=== PATIENT | female | born 1970 ===

== ENCOUNTER 2017-03-05 14:13 | Emergency (ER) | payer OTHER ==
[2017-03-05 14:25] VITALS: BP 164/74; PULSE 72; RESP 18; TEMP 97.4; O2SAT 100
[2017-03-05] MEDS ORDERED: Sodium Chloride 0.9% 1,000 ML IV STA (14:42)
--- NOTE | 2017-03-05 14:53 | ED PDOC ---
HPI: Abdomen Time Seen by Provider: 03/05/17 14:28 Chief Complaint (Nursing): Abdominal Pain Chief Complaint (Provider): Abdominal Pain History Per: Patient History/Exam Limitations: no limitations Onset/Duration Of Symptoms: Days (x 2 days) Current Symptoms Are (Timing): Still Present Additional Complaint(s): 46 y/o female with past medical history of hypertension and Deep Vein Thrombosis presents to the ED complaining of gastric pain associated with nausea and diarrhea x 2 days. Denies fever, bloody stool or any further medical complaints. PMD: Ed Zhou MD Past Medical History Vital Signs: Last Vital Signs Temp 97.4 F L 03/05/17 14:16 Pulse 72 03/05/17 14:16 Resp 18 03/05/17 14:16 BP 164/74 H 03/05/17 14:16 Pulse Ox 100 03/05/17 14:54 - Family History Family History: States: Unknown Family Hx - Home Medications Home Medications: Ambulatory Orders Medication Instructions Recorded Famotidine [Pepcid] 20 mg PO Q12 #20 tab 03/05/17 - Allergies Allergies/Adverse Reactions: Allergies Allergy/AdvReac Type Severity Reaction Status Date / Time No Known Allergies Allergy Verified 03/05/17 14:16 Review of Systems ROS Statement: Except As Marked, All Systems Reviewed And Found Negative (As per HPI, otherwise negative) Constitutional: Negative for: Fever Gastrointestinal: Positive for: Nausea, Abdominal Pain, Diarrhea Genitourinary Female: Negative for: Other (bloody stool) Physical Exam - Reviewed Nursing Documentation Reviewed: Yes Vital Signs Reviewed: Yes - Physical Exam Appears: Positive for: Non-toxic, No Acute Distress Head Exam: Positive for: ATRAUMATIC, NORMOCEPHALIC Skin: Positive for: Normal Color, Warm, Dry Eye Exam: Positive for: EOMI, Normal appearance, PERRL Cardiovascular/Chest: Positive for: Regular Rate, Rhythm. Negative for: Murmur Respiratory: Positive for: Normal Breath Sounds. Negative for: Accessory Muscle Use, Respiratory Distress Gastrointestinal/Abdominal: Positive for: Tenderness (episgastric tenderness) Back: Positive for: Normal Inspection. Negative for: L CVA Tenderness, R CVA Tenderness, Vertebral Tenderness Extremity: Positive for: Normal ROM. Negative for: Tenderness, Deformity, Swelling Neurologic/Psych: Positive for: Alert, Oriented (x3) - Laboratory Results Result Diagrams: 03/05/17 14:57 03/05/17 14:57 - ECG O2 Sat by Pulse Oximetry: 100 (RA) Pulse Ox Interpretation: Normal Medical Decision Making Medical Decision Making: Time: 14:42 Plan: CMP CBC w/ diff Bentyl 10mg PO Pepcid 20g IVP Sodium chloride 1L IV Zofran 4mg IVP Scribe Attestation: Documented by Nicho Farley acting as a scribe for Carlos Arellano MD. Scribe Attestation: All medical record entries made by the Scribe were at my direction and personally dictated by me. I have reviewed the chart and agree that the record accurately reflects my personal performance of the history, physical exam, medical decision making, and the department course for this patient. I have also personally directed, reviewed, and agree with the discharge instructions and disposition. Disposition - Clinical Impression Clinical Impression: Gastritis - Patient ED Disposition Is Patient to be Admitted: No Counseled Patient/Family Regarding: Studies Performed, Diagnosis, Need For Followup, Rx Given - Disposition Referrals: ED Physician, [Primary Care Provider] - [facility] [Outside] Disposition: Routine/Home Disposition Time: 16:30 Condition: FAIR Prescriptions: Famotidine [Pepcid] 20 mg PO Q12 #20 tab Instructions: Gastritis (ED) Forms: [employer] (Syriac)
[2017-03-05 15:05] LABS: BASO # 0.1 K/uL (0.0-0.2); BASO % 0.7 % (0.0-2.0); EOS # 0.1 K/uL (0.0-0.7); EOS % 1.4 % (0.0-4.0); HEMATOCRIT 36.8 % (34.0-47.0); LYMPH # 2.1 K/uL (1.0-4.3); LYMPH % 24.4 % (20.0-40.0); MEAN CELL VOLUME 85.9 fl (81.0-99.0); MEAN CORPUSCULAR HEMOGLOBIN 28.1 pg (27.0-31.0); MEAN CORPUSCULAR HGB CONC 32.8 g/dL (33.0-37.0); MEAN PLATELET VOLUME 9.5 fl (7.2-11.7); MONO # 0.7 K/uL (0.0-0.8); NEUT # 5.5 K/uL (1.8-7.0); NEUT % 65.5 % (50.0-75.0); NRBC % 0.1 % (0.0-0.0); RED CELL DISTRIBUTION WIDTH 14.6 % (11.5-14.5); WHITE BLOOD COUNT 8.4 K/uL (4.8-10.8)
[2017-03-05 15:10] LABS: ALB/GLOB RATIO 1.2 (1.0-2.1); ALKALINE PHOSPHATASE 54 U/L (38-126); ALT/SGPT 35 U/L (9-52); AST/SGOT 22 U/L (14-36); BILIRUBIN,TOTAL 0.3 mg/dl (0.2-1.3); BLOOD UREA NITROGEN 13 mg/dl (7-17); CALCIUM 8.8 mg/dL (8.4-10.2); CARBON DIOXIDE 29 mmol/L (22-30); CHLORIDE 107 mmol/L (98-107); GFR AFRICAN-AMERICAN > 60; GLUCOSE,RANDOM 86 mg/dL (65-105); SODIUM 146 mmol/l (132-148); TOTAL PROTEIN 7.6 G/DL (6.3-8.2)
== END 2017-03-05 16:42 | disposition home or self-care (01) ==
LOC: H.ER 14:13
DX: K29.70 Gastritis, unspecified, without bleeding (principal); I10 Essential (primary) hypertension
CPT/HCPCS: 80053; 85025; 96361; 96374; 96375; 99282; J2405; J7040

== ENCOUNTER 2017-10-14 17:29 | Emergency (ER) | payer OTHER ==
[2017-10-14 17:50] VITALS: O2SAT 99
--- NOTE | 2017-10-14 18:42 | ED PDOC ---
Lower Extremity Pain/Injury Time Seen by Provider: 10/14/17 18:22 Chief Complaint (Nursing): Lower Extremity Problem/Injury Additional Complaint(s): 46-year-old female presents with pain and swelling to left leg times one week. Patient has history of blood clots to same leg. She currently takes eloquent daily. Patient also has history of meniscal tear to left knee. She denies recent trauma or injury. No fever or chills. No chest pain, shortness of breath or dyspnea on exertion. Past Medical History Reviewed: Historical Data, Nursing Documentation, Vital Signs Vital Signs: Last Vital Signs Temp 98.3 F 10/14/17 17:48 Pulse 86 10/14/17 17:48 Resp 20 10/14/17 17:48 BP 177/105 H 10/14/17 17:48 Pulse Ox 99 10/14/17 17:48 - Medical History PMH: Deep Vein Thrombosis, HTN - Surgical History Other surgeries: tubal ligation, left ovarian cyst removal - Family History Family History: States: No Known Family Hx - Living Arrangements Living Arrangements: With Family - Social History Current smoker - smoking cessation education provided: No Alcohol: None Drugs: Denies - Home Medications Home Medications: Ambulatory Orders Medication Instructions Recorded Famotidine [Pepcid] 20 mg PO Q12 #20 tab 03/05/17 Acetaminophen 2 tab PO Q6 PRN #24 tablet 10/15/17 - Allergies Allergies/Adverse Reactions: Allergies Allergy/AdvReac Type Severity Reaction Status Date / Time No Known Allergies Allergy Verified 03/05/17 14:16 Wells Criteria for PE - Wells Criteria for Pulmonary Embolism Clinical Signs and Symptoms of DVT: Yes P.E is #1 Diagnosis, or Equally Likely: No Heart Rate >100: No Immobilization at least 3 days;Surgery previous 4 weeks: No Previous, objectively diagnosed PE or DVT: No Hemoptysis: No Malignancy w/treatment within 6 months, or palliative: No Total Score: 3 Review of Systems ROS Statement: Except As Marked, All Systems Reviewed And Found Negative Constitutional: Negative for: Fever, Chills Cardiovascular: Negative for: Chest Pain Respiratory: Negative for: Cough Musculoskeletal: Positive for: Other (left leg pain and swelling) Physical Exam - Reviewed Nursing Documentation Reviewed: Yes Vital Signs Reviewed: Yes - Physical Exam Appears: Positive for: Well, Non-toxic, No Acute Distress Skin: Positive for: Normal Color. Negative for: Rash Eye Exam: Positive for: Normal appearance Cardiovascular/Chest: Positive for: Regular Rate, Rhythm Respiratory: Positive for: Normal Breath Sounds. Negative for: Wheezing, Respiratory Distress Extremity: Positive for: Calf Tenderness (left), Other (Diffuse swelling noted to left lower extremity, full range of motion left knee with pain, normal distal sensation left lower extremity). Negative for: Deformity Neurologic/Psych: Positive for: Alert, Oriented - Laboratory Results Result Diagrams: 10/14/17 19:40 10/14/17 19:40 - ECG O2 Sat by Pulse Oximetry: 99 Pulse Ox Interpretation: Normal Medical Decision Making Medical Decision Makin46 year old with left leg pain Plan: Left knee x-ray Doppler left leg CBC CMP PT/PTT IVF Disposition - Clinical Impression Clinical Impression: Left leg pain - Patient ED Disposition Is Patient to be Admitted: Transfer of Care - Disposition Disposition: Transfer of Care Disposition Time: 19:00 Condition: FAIR Prescriptions: Acetaminophen 2 tab PO Q6 PRN #24 tablet PRN Reason: Pain, Moderate (4-7) Instructions: Knee Pain (DC) Forms: [facility] ED School/Work Excuse Print Language: KAZAKH Patient Signed Over To: Adrianne Farley Handoff Comments: Signed out pending diagnostic testing results and final disposition
[2017-10-14] MEDS ORDERED: Sodium Chloride 0.9% 1,000 ML IV STA (18:53)
[2017-10-14 19:53] LABS: BASO # 0.1 K/uL (0.0-0.2); BASO % 0.7 % (0.0-2.0); EOS # 0.1 K/uL (0.0-0.7); EOS % 1.2 % (0.0-4.0); HEMOGLOBIN 11.3 g/dL (12.0-16.0); LYMPH # 2.4 K/uL (1.0-4.3); LYMPH % 21.6 % (20.0-40.0); MEAN CELL VOLUME 84.7 fl (81.0-99.0); MEAN CORPUSCULAR HEMOGLOBIN 28.1 pg (27.0-31.0); MEAN CORPUSCULAR HGB CONC 33.1 g/dL (33.0-37.0); MEAN PLATELET VOLUME 9.1 fl (7.2-11.7); MONO # 0.9 K/uL (0.0-0.8); MONO % 7.9 % (0.0-10.0); NEUT # 7.8 K/uL (1.8-7.0); NEUT % 68.6 % (50.0-75.0); NRBC % 2.5 % (0.0-0.0); RBC 4.04 Mil/uL (3.80-5.20); RED CELL DISTRIBUTION WIDTH 15.6 % (11.5-14.5); WHITE BLOOD COUNT 11.3 K/uL (4.8-10.8)
[2017-10-14 20:00] LABS: ALB/GLOB RATIO 1.1 (1.0-2.1); ALBUMIN 4.1 g/dL (3.5-5.0); ALT/SGPT 22 U/L (9-52); AST/SGOT 21 U/L (14-36); BLOOD UREA NITROGEN 12 mg/dl (7-17); CALCIUM 8.8 mg/dL (8.4-10.2); GFR AFRICAN-AMERICAN > 60; GFR NON-AFRICAN AMERICAN > 60
[2017-10-14 20:19] LABS: PARTIAL THROMBOPLASTIN TIME 35.1 Seconds (25.6-37.1); PROTHROMBIN TIME 11.4 Seconds (9.8-13.1)
[2017-10-14 23:28] VITALS: RESP 18; TEMP 98
--- NOTE | 2017-10-15 00:24 | ED PDOC ---
- Laboratory Results Result Diagrams: 10/14/17 19:40 10/14/17 19:40 - ECG O2 Sat by Pulse Oximetry: 99 - Progress ED Course And Treament: duplex left leg: no dvt xry of knee: no obvious fx/abnormality Disposition - Clinical Impression Clinical Impression: Left leg pain - POA Present On Arrival: None - Disposition Disposition: Routine/Home Disposition Time: 00:53 Condition: FAIR Prescriptions: Acetaminophen 2 tab PO Q6 PRN #24 tablet PRN Reason: Pain, Moderate (4-7) Instructions: Knee Pain (DC) Print Language: FILIPINO
[2017-10-15 02:12] VITALS: BP 140/78; PULSE 78
--- NOTE | 2017-10-15 10:09 | RAD ---
PROCEDURE: Left Knee Radiographs. HISTORY: Pain. COMPARISON: None. FINDINGS: BONES: No acute fracture. JOINTS: Unremarkable. JOINT EFFUSION: None. OTHER FINDINGS: None. IMPRESSION: No demonstrated fracture or dislocation.
--- NOTE | 2017-10-15 10:10 | US ---
HISTORY: leg left pain and swelling . PRIORS: None. FINDINGS: 2-D, color and duplex Doppler analysis of the lower extremity venous circulation using routine protocol from the femoral veins through the popliteal veins. Venous compressibility: Normal. Flow and augmentation patterns: Normal. Visualized veins upper third of calf: Normal. Chahal cyst: None. IMPRESSION: No sonographic or Doppler evidence for DVT in left lower extremity. Concordant results (preliminary interpretation) provided by [facility]. Procedure Completed: 22:56. Preliminary ([facility]) Report: Dictated and Authenticated: 23:12. Final Interpretation: 10:09. October 15, 2017.
== END 2017-10-15 01:30 | disposition home or self-care (01) ==
LOC: H.ER 17:29
DX: M79.605 Pain in left leg (principal); I10 Essential (primary) hypertension; Z86.718 Personal history of other venous thrombosis and embolism
CPT/HCPCS: 73562; 80053; 85025; 85610; 85730; 93971; 99283; J7030

== ENCOUNTER 2018-07-29 19:19 | Emergency (ER) | payer OTHER ==
[2018-07-29 19:34] VITALS: BMI 40.0
[2018-07-29 19:36] VITALS: RESP 16; O2SAT 97
--- NOTE | 2018-07-29 20:37 | ED PDOC ---
Lower Extremity Pain/Injury Time Seen by Provider: 07/29/18 19:49 Chief Complaint (Nursing): Lower Extremity Problem/Injury Chief Complaint (Provider): Lower Extremity Problem/Injury History Per: Patient History/Exam Limitations: no limitations Onset/Duration Of Symptoms: Days (x2) Current Symptoms Are (Timing): Still Present Additional Complaint(s): 47 y/o female presents to the ED for evaluation of left leg pain, onset two days ago. Patient reports pain is mostly in the lateral part of the left lower leg that worsens with certain movements of the lower leg. Patient notes of experiencing similar pain to previous episodes when she was diagnosed with a DVT in 2013. Patient reports that at that same time, she also had a Pulmonary Embolism. Patient states she has been on eliquis since then of which she is complaint and taking regularly. Patient reports of being recently placed on antibiotics for a dental procedure on Monday and has since been having diarrhea. Patient notes of having 4 to 5 episodes of watery, non-bloody diarrhea associated with mild abdominal cramping, decreased PO intake and mild shortness of breath. Patient states abdominal cramping worsens with eating. Otherwise, patient denies nausea, vomiting and chest pain. PMD: Ed Zhou Past Medical History Reviewed: Historical Data, Nursing Documentation, Vital Signs Vital Signs: Last Vital Signs Temp 98.8 F 07/29/18 19:34 Pulse 85 07/29/18 19:34 Resp 16 07/29/18 19:34 BP 181/112 H 07/29/18 19:34 Pulse Ox 97 07/29/18 19:34 - Medical History PMH: Deep Vein Thrombosis, HTN - Surgical History Other surgeries: Brain tumor removal, correction of artery in the chest, tubal ligation and left ovary resection due to large cyst. - Family History Family History: States: Unknown Family Hx - Social History Current smoker - smoking cessation education provided: No Alcohol: None Drugs: Denies - Home Medications Home Medications: Ambulatory Orders Medication Instructions Recorded Famotidine [Pepcid] 20 mg PO Q12 #20 tab 03/05/17 Acetaminophen 2 tab PO Q6 PRN #24 tablet 10/15/17 Acetaminophen [Tylenol Extra 1,000 mg PO Q6 PRN #100 tablet 07/29/18 Strength] Atropine/Diphenoxylate [Lonox 2 tab PO QID PRN #30 tab 07/29/18 0.025 MG-2.5 MG] Naproxen [Naprosyn] 1 tab PO BID PRN #30 tab 07/29/18 Saccharomyces Boulardi [Florastor] 500 mg PO BID #28 cap 07/29/18 - Allergies Allergies/Adverse Reactions: Allergies Allergy/AdvReac Type Severity Reaction Status Date / Time No Known Allergies Allergy Verified 07/29/18 19:33 Review of Systems ROS Statement: Except As Marked, All Systems Reviewed And Found Negative (as per HPI) Cardiovascular: Negative for: Chest Pain Respiratory: Positive for: Shortness of Breath Gastrointestinal: Positive for: Abdominal Pain, Diarrhea, Other (decreased PO intake). Negative for: Nausea, Vomiting Musculoskeletal: Positive for: Leg Pain Physical Exam - Reviewed Nursing Documentation Reviewed: Yes Vital Signs Reviewed: Yes - Physical Exam Appears: Positive for: Well, No Acute Distress Head Exam: Positive for: ATRAUMATIC, NORMOCEPHALIC Skin: Positive for: Warm, Dry Eye Exam: Positive for: EOMI, PERRL Neck: Positive for: Painless ROM, Supple Cardiovascular/Chest: Positive for: Regular Rate, Rhythm. Negative for: Murmur Respiratory: Positive for: Normal Breath Sounds. Negative for: Respiratory Distress Gastrointestinal/Abdominal: Positive for: Bowel Sounds (hyperactive bowel sounds), Soft. Negative for: Tenderness, Mass, Guarding, Rebound Back: Positive for: Normal Inspection. Negative for: Decreased ROM Extremity: Positive for: Calf Tenderness (left). Negative for: Pedal Edema, Deformity, Swelling Lymphatic: Negative for: Adenopathy Neurological/Psych: Positive for: Awake, Alert. Negative for: Motor/Sensory Deficits - Laboratory Results Result Diagrams: 07/29/18 20:47 07/29/18 20:47 - ECG O2 Sat by Pulse Oximetry: 97 (RA) Pulse Ox Interpretation: Normal Medical Decision Making Medical Decision Making: Time: 2010 Impression: Leg pain and diarrhea Rule out DVT v sciatica v muscle cramp Diarrhea likely antibiotic associated. Differentials include but not limited to C Diff colitis and dehydration Plan: -- Type and Screen -- EKG -- B-Type Natriuretic Peptide -- CMP -- Magnesium -- Phosphorus -- ED Urine -- ED Urine Dipstick -- CBC with Differentials -- PTT -- Prothrombin Time -- Stool Culture -- IV Insertion -- C Diff Toxin A B -- US Duplex Lower Extrem Vein Left Name: RACHEL RUBY Exam Date: Jul 29, 2018 10:56:03 PM EDT Modality Type: SD\US\MT Description: US - LOWER EXTREMITY VENOUS Gender: F Laterality: Left : 68 Referring Physician: Erika Bernardo EXAM: US for Deep Venous Thrombosis, left Lower Extremity. CLINICAL HISTORY: LEFT LEG PAIN, DIARRHEA. TECHNIQUE: Real-time ultrasound scan of the veins of the left lower extremity with color Doppler flow, spectral waveform analysis and compression. COMPARISON: None provided. FINDINGS: DEEP VEINS: The common femoral, superficial femoral, and popliteal veins are echolucent and compressible. There is normal color Doppler flow throughout. The visualized calf veins appear patent. SUPERFICIAL VEINS: The visualized greater saphenous vein is patent. SOFT TISSUES: No popliteal fossa cyst or other abnormalities. IMPRESSION: No deep venous thrombosis evident on left lower extremity examination. Electronically signed on Jul 29, 2018 11:50:33 PM EDT by: Mehran Aviles M.D., M.B.A., Certified By [employer] Trained MRI and CT Specialist Labs unremarkable. DW pt findings. Pt given additional medications for pain. Stable for dc with fu pmd. Scribe Attestation: Documented by Paulino Perez, acting as a scribe Addison Bernardo MD. Provider Scribe Attestation: All medical record entries made by the Scribe were at my direction and personally dictated by me. I have reviewed the chart and agree that the record accurately reflects my personal performance of the history, physical exam, medical decision making, and the department course for this patient. I have also personally directed, reviewed, and agree with the discharge instructions and disposition. Disposition - Clinical Impression Clinical Impression: Antibiotic-associated diarrhea, Leg cramp - Disposition Disposition: Routine/Home Disposition Time: 23:00 Condition: STABLE Prescriptions: Acetaminophen [Tylenol Extra Strength] 1,000 mg PO Q6 PRN #100 tablet PRN Reason: FEVER OR PAIN Atropine/Diphenoxylate [Lonox 0.025 MG-2.5 MG] 2 tab PO QID PRN #30 tab PRN Reason: Diarrhea Naproxen [Naprosyn] 1 tab PO BID PRN #30 tab PRN Reason: Pain Saccharomyces Boulardi [Florastor] 500 mg PO BID #28 cap Instructions: Sciatica (DC), Antibiotic-Associated Diarrhea (DC) Print Language: URDU
[2018-07-29 20:57] LABS: BASO # 0.1 K/uL (0.0-0.2); BASO % 0.7 % (0.0-2.0); EOS # 0.1 K/uL (0.0-0.7); EOS % 1.5 % (0.0-4.0); HEMOGLOBIN 11.8 g/dL (12.0-16.0); LYMPH # 2.7 K/uL (1.0-4.3); LYMPH % 33.2 % (20.0-40.0); MEAN CELL VOLUME 84.9 fl (81.0-99.0); MEAN CORPUSCULAR HEMOGLOBIN 28.4 pg (27.0-31.0); MEAN CORPUSCULAR HGB CONC 33.5 g/dL (33.0-37.0); MEAN PLATELET VOLUME 8.9 fl (7.2-11.7); MONO # 0.5 K/uL (0.0-0.8); MONO % 6.8 % (0.0-10.0); NEUT # 4.6 K/uL (1.8-7.0); NEUT % 57.8 % (50.0-75.0); RBC 4.14 Mil/uL (3.80-5.20); RED CELL DISTRIBUTION WIDTH 14.6 % (11.5-14.5)
[2018-07-29 21:03] LABS: PROTHROMBIN TIME 11.8 Seconds (9.8-13.1)
[2018-07-29 21:06] LABS: PARTIAL THROMBOPLASTIN TIME 30.2 Seconds (25.6-37.1)
[2018-07-29 21:11] LABS: ALB/GLOB RATIO 1.1 (1.0-2.1); ALBUMIN 4.4 g/dL (3.5-5.0); ALT/SGPT 37 U/L (9-52); AST/SGOT 28 U/L (14-36); BLOOD UREA NITROGEN 14 mg/dl (7-17); GFR NON-AFRICAN AMERICAN > 60
[2018-07-29 21:19] LABS: B-TYPE NATRIURETIC PEPTIDE 121 pg/ml (0-450)
[2018-07-30 00:37] VITALS: BP 150/90; PULSE 81; TEMP 98.7
--- NOTE | 2018-07-30 09:28 | CARD ---
APPROVED REPORT Date of service: 07/29/2018 EKG Measurement Heart [id number] <Conclusion> Normal sinus rhythm Normal ECG
--- NOTE | 2018-07-30 10:15 | US ---
Date of service: 07/29/2018 HISTORY: LEFT left pain h/o DVT. PRIORS: None. FINDINGS: 2-D, color and duplex Doppler analysis of the lower extremity venous circulation using routine protocol from the femoral veins through the popliteal veins. Venous compressibility: Normal. Flow and augmentation patterns: Normal. Visualized veins upper third of calf: Normal. Chahal cyst: None. IMPRESSION: No sonographic or Doppler evidence for DVT in left lower extremity. Concordant findings (preliminary report) provided by [facility].
== END 2018-07-30 00:36 | disposition home or self-care (01) ==
LOC: H.ER 19:19
DX: R25.2 Cramp and spasm (principal); R19.7 Diarrhea, unspecified; I10 Essential (primary) hypertension; K52.9 Noninfective gastroenteritis and colitis, unspecified
CPT/HCPCS: 80053; 81025; 83735; 83880; 84100; 85025; 85610; 85730; 86850; 86900; 93005; 93971; 96374; 99285; J1885